=== PATIENT | female | born 1995 | race Caucasian/White ===

== ENCOUNTER 2018-06-09 11:07 | Emergency (ER) | payer MEDICAID ==
[~2018-06-09] VITALS: Ht 162.6 cm; Wt 68.9 kg
[2018-06-09 11:25] VITALS: BP 136/72
[2018-06-09 11:52] LABS: Urine Bacteria FEW /hpf (None Seen); Urine Blood 1+ /uL (Negative); Urine Specific Gravity 1.014 (1.001-1.035); Urine WBC 152 /hpf (0 - 5)
== END 2018-06-09 15:58 | disposition left against medical advice (07) ==
LOC: ER 11:07
DX: M54.5 Low back pain (principal); G89.29 Other chronic pain; Z53.21 Procedure and treatment not carried out due to patient leaving prior to being seen by health care provider
CPT/HCPCS: 72100; 81001; 81025